=== PATIENT | male | born 1995 | race Caucasian/White ===

== ENCOUNTER 2016-07-26 21:30 | Emergency (ER) | payer OTHER ==
[~2016-07-26 21:30] MED LIST: CEPH500C3 PO; IBUP800T23 PO; ZOFR4TAB3 SL
[2016-07-26 21:32] VITALS: BP 145/80; PULSE 86; RESP 16; TEMP 98.1; O2SAT 99
--- NOTE | 2016-07-26 22:02 | PD ---
HPI Chief Complaint: Laceration/Skin Injury Time Seen by Provider: 22:00 Travel History International Travel<30 days: No Contact w/Intl Traveler<30days: No Traveled to known affect area: No History of Present Illness HPI 20-year-old male presents to emergency department with a laceration on his right heel which occurred prior to arrival. He states that he had lacerated on the bed frame. He has not had a tetanus shot over 5 years. Pain is mild. He denies any numbness, tingling or weakness. PFSH Past Medical History Medical History: Denies Significant Hx Hx Anticoagulant Therapy: No Cardiovascular Problems: No Chemotherapy: No Cerebrovascular Accident: No Diabetes: No Respiratory: No Tetanus Vaccination: > 5 Years Past Surgical History Surgical History: No Previous Surgery Social History Alcohol Use: No Tobacco Use: No Substance Use: No Allergies-Medications (Allergen,Severity, Reaction): Coded Allergies: No Known Allergies (Unverified , 07/26/16) Reported Meds & Prescriptions Reported Meds & Active Scripts Active No Active Prescriptions or Reported Medications Review of Systems Except as stated in HPI: all other systems reviewed are Neg Physical Exam Narrative GENERAL: This is a well-nourished, well-developed patient, in no apparent distress. SKIN: No rashes, ecchymoses or lesions. Warm and dry. HEAD: Atraumatic. Normocephalic. EYES: PERRL, EOMI, no discharge or injection. No scleral icterus. EARS: Clear NOSE: Nasal turbinates appear normal. THROAT: Mucosa pink and moist. Airway patent. NECK: Trachea midline. supple, moves head freely. LUNGS: Clear to auscultation. CV: Regular in rhythm. ABDOMEN: Soft nontender. EXT: No clubbing cyanosis or edema. Patient has a 4 cm laceration to the posterior right heel. This goes into the subcutaneous change tissues but no deep injury. No foreign body. Neurovascular intact. Data Data Last Documented VS Vital Signs Date Time Temp Pulse Resp B/P Pulse Ox O2 Delivery O2 Flow Rate FiO2 07/26/16 22:05 21 07/26/16 21:32 98.1 86 145/80 99 Room Air Orders Tetanus/Diphtheria Tox Adult (Tetanus/Di (07/26/16 22:15) MDM Medical Decision Making Medical Screen Exam Complete: Yes Emergency Medical Condition: Yes Medical Record Reviewed: Yes Differential Diagnosis MDM: High Differential diagnoses: Fracture, sprain, strain, dislocation, contusion, neurovascular injury Narrative Course Patient's tetanus status updated. Laceration closer sutures. This is right heel laceration Procedures Procedure Narrative LACERATION LOCATION: Right posterior LENGTH: 4 cm NUMBER OF STITCHES/MENDEZ: 8 REPAIR: The area of the laceration was prepped with Betadine and sterilely draped. The laceration was infiltrated with 1% lidocaine. The wound was copiously irrigated and explored without evidence of foreign body, tendon injury or neurovascular injury. The wound was closed using 4-0 proline. This was a simple single layer repair. A sterile dressing was applied. The patient was advised to keep the dressing clean and dry. Patient tolerated the procedure well. Diagnosis Primary Impression: Laceration of right heel Qualified Code: S91.311A - Laceration of right heel, initial encounter Patient Instructions: General Instructions Additional Instructions: Rest. Elevation. Tylenol and Advil for pain. Daily wound care with soap, water, Neosporin. Sutures out in 12-14 days. Return to the ER if any problems. Med/Other Pt SpecificInfo: Wound Care Scripts No Active Prescriptions or Reported Meds Disposition: 01 DISCHARGE HOME Condition: Stable Yo Gibson Jul 26, 2016 22:02
[2016-07-26] MEDS ORDERED: TETANUS/DIPHTHERIA TOXOID ADULT 0.5 ML VIAL IM ONE (22:15)
== END 2016-07-26 22:36 | disposition home or self-care (01) ==
LOC: NEPB 21:30
DX: S91.311A Laceration without foreign body, right foot, initial encounter (principal); Z23 Encounter for immunization; W45.8XXA Other foreign body or object entering through skin, initial encounter
CPT/HCPCS: 12002; 90471; 90714

== ENCOUNTER 2016-08-02 10:20 | Emergency (ER) | payer OTHER ==
[~2016-08-02] VITALS: Ht 182.9 cm; Wt 100.0 kg
[2016-08-02 10:25] VITALS: BP 141/71; PULSE 102; RESP 17; TEMP 98.4; O2SAT 99
--- NOTE | 2016-08-02 11:44 | PD ---
HPI . Abdominal discomfort, nausea, cough, and cold like symptoms for 1 day Chief Complaint: GI Complaint Time Seen by Provider: 11:44 Travel History International Travel<30 days: No Contact w/Intl Traveler<30days: No Traveled to known affect area: No History of Present Illness HPI 20-year-old Bahraini-speaking male with no significant past medical history here with complaints of abdominal discomfort, nausea, cough and cold-like symptoms for 1 day. Patient states that yesterday he developed some abdominal discomfort and had one episode of vomiting. He says since then he has had some intermittent nausea. He tells me that he is also having cold like symptoms of a slight cough and mild sore throat. All of his symptoms started yesterday. He is a patient of Dr. England, but tells me that he never goes there. A shrimp trawler was used to obtain some of this information. He denies any chest pain, shortness of breath, diarrhea, vomiting, weakness or fatigue. PFSH Past Medical History Hx Anticoagulant Therapy: No Cardiovascular Problems: No Chemotherapy: No Cerebrovascular Accident: No Diabetes: No Respiratory: No Social History Alcohol Use: No Tobacco Use: No Substance Use: No Allergies-Medications (Allergen,Severity, Reaction): Coded Allergies: No Known Allergies (Unverified , 08/02/16) Reported Meds & Prescriptions Reported Meds & Active Scripts Active No Active Prescriptions or Reported Medications Review of Systems General / Constitutional: No: Fever Eyes: No: Visual changes HENT: Positive: Sore Throat, No: Headaches Cardiovascular: No: Chest Pain or Discomfort Respiratory: Positive: Cough, No: Shortness of Breath Gastrointestinal: Positive: Nausea, Abdominal Pain, No: Vomiting, Diarrhea Genitourinary: No: Dysuria Musculoskeletal: No: Pain Skin: No Rash Neurologic: No: Weakness Psychiatric: No: Depression Endocrine: No: Polydipsia Hematologic/Lymphatic: No: Easy Bruising Physical Exam Narrative GENERAL: AAO x 3, no acute distress, Well-nourished, well-developed patient. Comfortable in bed. SKIN: Warm and dry. No visible rashes or bruising. HEAD: Normocephalic and atraumatic. EYES: No scleral icterus. No injection or drainage. EOM intact, PERRLA ENT: No nasal drainage noted. Mucous membranes pink. Airway patent. Mild post pharynx erythema and mild post nasal drip.TM normal b/l NECK: Supple, trachea midline. No JVD. NO adenopathy. CARDIOVASCULAR: Regular rate and rhythm without murmurs, gallops, or rubs. RESPIRATORY: Breath sounds equal bilaterally. No accessory muscle use. No rhonchi or rales. GASTROINTESTINAL: Abdomen soft, non-tender, nondistended. No rebound or guarding on exam. EXTREMITIES: No cyanosis or edema. BACK: Nontender without obvious deformity. No CVA tenderness. PSYCH: AAO x 3, normal affect. Data Data Last Documented VS Vital Signs Date Time Temp Pulse Resp B/P Pulse Ox O2 Delivery O2 Flow Rate FiO2 08/02/16 12:05 98.0 78 17 120/77 99 MDM Medical Decision Making Medical Screen Exam Complete: Yes Emergency Medical Condition: Yes Medical Record Reviewed: Yes Differential Diagnosis viral syndrome, viral gastroenteritis, viral bronchitis Narrative Course 20-year-old [place]raini-speaking male with no significant past medical history here with complaints of abdominal discomfort, nausea, cough and cold-like symptoms for 1 day. Patient states that yesterday he developed some abdominal discomfort and had one episode of vomiting. He says since then he has had some intermittent nausea. He tells me that he is also having cold like symptoms of a slight cough and mild sore throat. All of his symptoms started yesterday. He is a patient of Dr. England, but tells me that he never goes there. A shrimp trawler was used to obtain some of this information. He denies any chest pain, shortness of breath, diarrhea, vomiting, weakness or fatigue. Patient seen and examined. No acute findings on exam. I discussed using mario and olvin terrell. I advised him to see his PCP for further workup and care. Diagnosis Primary Impression: Viral syndrome Additional Impression: Viral intestinal infection Patient Instructions: Acute Nausea and Vomiting (ED), Gastroenteritis (ED) Additional Instructions: Take medication (zofran) as needed for nausea. Take Tylenol if you develop a fever. Follow up with your primary care provider as we discussed. Med/Other Pt SpecificInfo: Prescription(s) given Scripts No Active Prescriptions or Reported Meds Disposition: 01 DISCHARGE HOME Condition: Stable Sneha Monte Aug 02, 2016 11:44
[2016-08-02] MEDS ORDERED: ZOFR8TAB PO (11:55)
[2016-08-02] MEDS ORDERED: BENZ100 PO (11:55)
[2016-08-02 12:05] VITALS: BP 120/77; TEMP 98
== END 2016-08-02 12:05 | disposition home or self-care (01) ==
LOC: NEPB 10:20
DX: B34.9 Viral infection, unspecified (principal)
CPT/HCPCS: 99283

== ENCOUNTER 2016-08-09 10:13 | Emergency (ER) | payer OTHER ==
[2016-08-09 10:14] VITALS: BP 139/63; PULSE 84; RESP 15; TEMP 97.9; O2SAT 97
--- NOTE | 2016-08-09 10:35 | PD ---
HPI Chief Complaint: Laceration/Skin Injury Time Seen by Provider: 10:34 Travel History International Travel<30 days: No Contact w/Intl Traveler<30days: No Traveled to known affect area: No History of Present Illness HPI 20-year-old male presents to the ED for evaluation of sutures of the right heel. Patient states the sutures were placed approximately 14 days ago. He denies discharge, bleeding, swelling, erythema, fevers or chills. He has been ambulatory with no difficulties or limitations to range of motion. Patient is Pakistani-speaking only. History was gathered using the ED video interpretation service. [facility], [facility] Past Medical History Hx Anticoagulant Therapy: No Cardiovascular Problems: No Chemotherapy: No Cerebrovascular Accident: No Diabetes: No Diminished Hearing: No Respiratory: Yes (bronchitis) Social History Alcohol Use: No Tobacco Use: No Substance Use: No Allergies-Medications (Allergen,Severity, Reaction): Coded Allergies: No Known Allergies (Unverified , 08/09/16) Reported Meds & Prescriptions Reported Meds & Active Scripts Active No Active Prescriptions or Reported Medications Review of Systems Except as stated in HPI: all other systems reviewed are Neg Physical Exam Narrative GENERAL: Well-nourished, well-developed male in no acute distress. SKIN: Warm and dry. There is a 3-4 cm well healing laceration of the right heel. There is a 1 cm ecchymosis at the proximal aspect of this laceration. There are [address] with no signs of infection. HEAD: Normocephalic. EYES: No scleral icterus. No injection or drainage. NECK: Supple, trachea midline. No JVD or lymphadenopathy. CARDIOVASCULAR: Regular rate and rhythm without murmurs, gallops, or rubs. RESPIRATORY: Breath sounds equal bilaterally. No accessory muscle use. GASTROINTESTINAL: Abdomen soft, non-tender, nondistended. MUSCULOSKELETAL: No cyanosis, or edema. FOCUSED RIGHT LOWER EXTREMITY EXAM: Patient is able to flex and extend the ankle without pain. No tenderness to palpation of the wound. 2+ DP pulse. BACK: Nontender without obvious deformity. No CVA tenderness. Data Data Last Documented VS Vital Signs Date Time Temp Pulse Resp B/P Pulse Ox O2 Delivery O2 Flow Rate FiO2 08/09/16 10:14 97.9 84 15 139/63 97 MDM Medical Decision Making Medical Screen Exam Complete: Yes Emergency Medical Condition: Yes Differential Diagnosis Laceration repair versus suturing removal versus wound infection versus other Narrative Course 20-year-old male presents to the ED for evaluation of sutures of the right heel. Patient states the sutures were placed approximately 14 days ago. He denies discharge, bleeding, swelling, erythema, fevers or chills. He has been ambulatory with no difficulties or limitations to range of motion. Patient is Pakistani-speaking only. History was gathered using the ED video interpretation service. Vitals reviewed. Physical exam reveals a 3-4 cm laceration on the posterior right heel. There is a small ecchymosis to the proximal aspect of the wound. Wound is well healing with no signs of infection. 8 Prolene sutures were removed without incident. He tolerated the procedure well. He was given detailed follow-up instructions in Pakistani. He indicated understanding of the instructions, is amenable to plan of care. He is stable and discharged home. Diagnosis Primary Impression: Visit for suture removal Additional Impression: Laceration of right heel Qualified Code: S91.311D - Laceration of right heel, subsequent encounter Referrals: Primary Care Physician Patient Instructions: General Instructions, Laceration (ED) Additional Instructions: Rest, hydrate. Keep the wound clean and covered. Wash gently with soap and water. Allowed to dry completely before recovering with a clean dressing. Monitor for signs of infection such as swelling, redness, pus. Follow-up with your primary care provider. Return to the ED for any urgent or emergent medical condition. Scripts No Active Prescriptions or Reported Meds Disposition: 01 DISCHARGE HOME Condition: Stable Sweta Gonzáles Aug 09, 2016 10:34
== END 2016-08-09 11:16 | disposition home or self-care (01) ==
LOC: NEPB 10:13
DX: S91.311D Laceration without foreign body, right foot, subsequent encounter (principal); Z48.02 Encounter for removal of sutures; X58.XXXD Exposure to other specified factors, subsequent encounter
CPT/HCPCS: 99281